=== PATIENT | female | born 1940 | race Caucasian/White ===

== ENCOUNTER 2017-07-16 14:18 | Outpatient (CLI) | payer MEDICARE, BC, OTHER ==
--- NOTE | 2017-07-16 14:51 | ULT ---
THYROID ULTRASOUND: HISTORY: Thyroid nodule. FINDINGS: Real-time imaging of the right and left lobes of the thyroid were performed. The right lobe measures 1.2 x 2.1 x 4.9 cm and the left lobe 1.5 x 2.1 x 4.8 cm. The gland is very heterogeneous. There ar e innumerable small nodules present. The largest nodule on the right measures in the 1 cm range. A predominantly cystic lesion measuring 1 x 1.2 cm is seen in the lower pole of the left lobe and a 2.2 cm predominantly solid nodule is seen in the mid portion of the left lobe. IMPRESSION: Bilateral thyroid nodules with a very heterogeneous gland. POS: [facility]
== END 2017-07-16 14:19 | disposition home or self-care (01) ==
LOC: ULT 14:18
PROVIDERS: ATTEND Specialist
DX: E04.1 Nontoxic single thyroid nodule (principal); E04.2 Nontoxic multinodular goiter
CPT/HCPCS: 76536

== ENCOUNTER 2017-12-01 11:19 | Outpatient (CLI) | payer MEDICARE, BC, OTHER | END 2017-12-01 11:20 | disposition home or self-care (01) | LOC: BICMAMMO 11:19 | PROVIDERS: ATTEND Family Medicine | DX: Z12.31 Encounter for screening mammogram for malignant neoplasm of breast (principal) | CPT/HCPCS: 77063; 77067 ==

== ENCOUNTER 2018-01-11 13:05 | Outpatient (CLI) | payer MEDICARE, BC, OTHER | END 2018-01-11 13:06 | disposition home or self-care (01) | LOC: BICULT 13:05 | PROVIDERS: ATTEND Specialist | DX: E04.1 Nontoxic single thyroid nodule (principal); E04.2 Nontoxic multinodular goiter | CPT/HCPCS: 76536 ==

== ENCOUNTER 2018-12-02 12:14 | Outpatient (CLI) | payer MEDICARE, BC, OTHER ==
--- NOTE | 2018-12-02 13:03 | MMO ---
Bilateral MAMMO Bilat Screen [id number]. CLINICAL HISTORY: Patient is 77 years old and is seen for screening. The patient has no family history of breast cancer. The patient has no personal history of cancer. VIEWS: The views performed were: bilateral craniocaudal with tomosynthesis; bilateral mediolateral oblique with tomosynthesis; and left mediolateral oblique. FILMS COMPARED: The present examination has been compared to prior imaging studies performed at [facility] on 11/07/2013, 11/14/2014, 11/19/2015, 11/25/2016 and 12/01/2017. MAMMOGRAM FINDINGS: The breasts are heterogeneously dense, which could obscure a lesion on mammography. Finding 1: There is an area of architectural distortion seen in the upper-outer region of the left breast. Finding 2: There are stable benign appearing densities seen in both breasts. Finding 3: There are stable benign appearing calcifications seen in both breasts. IMPRESSION: FINDING 1: AREA OF ARCHITECTURAL DISTORTION IN THE LEFT BREAST REQUIRES ADDITIONAL EVALUATION. AN ULTRASOUND EXAM IS RECOMMENDED. THE RESULTS OF THIS EXAM WERE SENT TO THE PATIENT. ACR BI-RADS Category 0 - Incomplete: Need additional imaging evaluation. [facility] will notify the patient of the need for additional imaging services. MAMMOGRAPHY NOTE: 1. A negative mammogram report should not delay a biopsy if a dominant of clinically suspicious mass is present. 2. Approximately 10% to 15% of breast cancers are not detected by mammography. 3. Adenosis and dense breasts may obscure an underlying neoplasm.
== END 2018-12-02 12:15 | disposition home or self-care (01) ==
LOC: BICMAMMO 12:14
PROVIDERS: ATTEND Family Medicine
DX: Z12.31 Encounter for screening mammogram for malignant neoplasm of breast (principal); N64.89 Other specified disorders of breast
CPT/HCPCS: 77063; 77067

== ENCOUNTER 2020-12-21 10:58 | Outpatient (CLI) | payer MEDICARE, BC, OTHER | END 2020-12-21 10:59 | disposition home or self-care (01) | LOC: BICMAMMO 10:58 | PROVIDERS: ATTEND Family Medicine | DX: Z12.31 Encounter for screening mammogram for malignant neoplasm of breast (principal) | CPT/HCPCS: 77063; 77067 ==

== ENCOUNTER 2021-12-24 13:15 | Outpatient (CLI) | payer MEDICARE, BC, OTHER | END 2021-12-24 13:16 | disposition home or self-care (01) | LOC: BICMAMMO 13:15 | PROVIDERS: ATTEND Family Medicine | DX: Z12.31 Encounter for screening mammogram for malignant neoplasm of breast (principal) | CPT/HCPCS: 77063; 77067 ==

== ENCOUNTER 2022-06-26 11:06 | Outpatient (CLI) | payer MEDICARE, BC, OTHER | END 2022-06-26 11:07 | disposition home or self-care (01) | LOC: BICRAD 11:06 | PROVIDERS: ATTEND Family Medicine | DX: R06.00 Dyspnea, unspecified (principal); I50.9 Heart failure, unspecified; I77.810 Thoracic aortic ectasia | CPT/HCPCS: 36415; 71046; 80053; 80061; 84443; 85025 ==

== ENCOUNTER 2023-02-26 12:31 | Outpatient (CLI) | payer MEDICARE, BC, OTHER | END 2023-02-26 12:32 | disposition home or self-care (01) | LOC: BICMAMMO 12:31 | PROVIDERS: ATTEND Family Medicine | DX: Z12.31 Encounter for screening mammogram for malignant neoplasm of breast (principal) | CPT/HCPCS: 77063; 77067 ==

== ENCOUNTER 2025-03-07 13:31 | Outpatient (CLI) | payer MEDICARE, BC, OTHER | END 2025-03-07 13:32 | disposition home or self-care (01) | LOC: BICMAMMO 13:31 | PROVIDERS: ATTEND Family Medicine | DX: Z12.31 Encounter for screening mammogram for malignant neoplasm of breast (principal) | CPT/HCPCS: 77063; 77067 ==